=== PATIENT | female | born 1965 | race Hispanic/Latino ===

== ENCOUNTER 2018-02-18 17:13 | Emergency (ER) | payer OTHER ==
[2018-02-18 17:47] LABS: BASOPHILS % (AUTO) 0.4 % (0.0-5.0); EOSINOPHILS % (AUTO) 5.7 % (0.0-8.0); HEMATOCRIT 37.2 % (36-48); LYMPHOCYTES % (AUTO) 28.6 % (21.0-51.0); MEAN CORPUSCULAR HEMOGLOBIN 30.2 pg (27.0-33.0); MEAN CORPUSCULAR HGB CONC 33.8 g/dL (32.0-36.0); MEAN CORPUSCULAR VOLUME 89.4 fL (79-99); MONOCYTES % (AUTO) 8.3 % (3.0-13.0); PLATELET COUNT (AUTO) 139 K/uL (130-400); RED BLOOD CELL COUNT(AUTO) 4.16 MIL/uL (4.00-5.50); RED CELL DISTRIBUTION WIDTH 14.6 % (11.0-15.5); WHITE BLOOD COUNT (AUTO) 9.2 K/uL (4.8-10.8)
[2018-02-18 18:04] LABS: CREATININE 1.2 mg/dL (0.5-1.5); POTASSIUM 4.4 mmol/L (3.5-5.1)
[2018-02-18 18:08] LABS: ALBUMIN 3.3 g/dL (3.5-5.0); BILIRUBIN,TOTAL 0.3 mg/dL (0.2-1.0); TOTAL PROTEIN, SERUM 7.1 g/dL (6.0-8.3)
[2018-02-18 18:08] LABS: APPEARANCE,URINE CLOUDY (CLEAR); BILIRUBIN,URINE NEGATIVE (NEGATIVE); COLOR,URINE YELLOW (YELLOW); GLUCOSE, URINE (UA) 250 mg/dL (NEGATIVE); KETONES,URINE NEGATIVE (NEGATIVE); LEUKOCYTE ESTERASE ,URINE TRACE (NEGATIVE); NITRATE,URINE NEGATIVE (NEGATIVE); OCCULT BLOOD,URINE LARGE (NEGATIVE); PROTEIN,URINE 100 (NEGATIVE); UROBILINOGEN,URINE 0.2 mg/dL (0.2-1.0)
[2018-02-18 18:18] LABS: BACTERIA,URINE Moderate /HPF (None Seen); RBC,URINE 26-50 /HPF (0-1); SQUAMOUS EPITHELIAL CELL,UR Rare /HPF (0-2)
[2018-02-18] MEDS ORDERED: MAG HYDROX/AL HYDROX/SIMETH ES 30 ML SUSP UDCUP ONE (19:05)
[2018-02-18] MEDS ORDERED: LIDOCAINE HCL 2% VISCOUS 15 ML UDCUP ONE (19:05)
[2018-02-18] MEDS ORDERED: SODIUM CHLORIDE 0.9% 1000ML 1,000 ML IV ONE (19:06)
[2018-02-18] MEDS ORDERED: CEFTRIAXONE SODIUM 1 GM ONE (19:06)
[2018-02-18] MEDS ORDERED: ONDANSETRON HCL 4 MG/2 ML VIAL ONE (19:06)
[2018-02-18] MEDS ORDERED: INSULIN HUMULIN R 100 UNIT/ML 3ML ONE (19:07)
== END 2018-02-18 20:24 | disposition home or self-care (01) ==
LOC: EDH 17:13
DX: N39.0 Urinary tract infection, site not specified (principal); K29.70 Gastritis, unspecified, without bleeding; R53.1 Weakness; R31.9 Hematuria, unspecified; E11.9 Type 2 diabetes mellitus without complications; E78.5 Hyperlipidemia, unspecified; I10 Essential (primary) hypertension; I25.10 Atherosclerotic heart disease of native coronary artery without angina pectoris; Z88.6 Allergy status to analgesic agent; Z90.710 Acquired absence of both cervix and uterus; Z98.890 Other specified postprocedural states; Z79.899 Other long term (current) drug therapy
CPT/HCPCS: 36415; 80053; 81001; 82550; 83690; 84484; 85025; 93005 ×2; 96361; 96374; 96375; 99285; J0696; J1815; J2405; J7030

== ENCOUNTER 2018-03-03 09:44 | Observation (INO) | payer OTHER ==
[~2018-03-03] VITALS: Ht 157.5 cm; Wt 89.2 kg
[2018-03-03 10:35] LABS: BASOPHILS % (AUTO) 0.3 % (0.0-5.0); EOSINOPHILS % (AUTO) 2.5 % (0.0-8.0); HEMATOCRIT 36.8 % (36-48); LYMPHOCYTES % (AUTO) 23.1 % (21.0-51.0); MEAN CORPUSCULAR HEMOGLOBIN 29.8 pg (27.0-33.0); MEAN CORPUSCULAR HGB CONC 33.4 g/dL (32.0-36.0); MEAN CORPUSCULAR VOLUME 89.4 fL (79-99); MONOCYTES % (AUTO) 7.5 % (3.0-13.0); NEUTROPHILS % (AUTO) 66.6 % (40.0-77.0); PLATELET COUNT (AUTO) 174 K/uL (130-400); RED BLOOD CELL COUNT(AUTO) 4.12 MIL/uL (4.00-5.50); WHITE BLOOD COUNT (AUTO) 8.3 K/uL (4.8-10.8)
[2018-03-03 10:50] LABS: CREATININE 1.1 mg/dL (0.5-1.5)
[2018-03-03] MEDS ORDERED: KETOROLAC TROMETHAMINE 30MG/ML ONE (11:06)
[2018-03-03] MEDS ORDERED: INSULIN HUMULIN R 100 UNIT/ML 3ML ONE (11:09)
[2018-03-03] MEDS ORDERED: SODIUM CHLORIDE 0.9% 50 ML IV ONE (12:34)
[2018-03-03] MEDS ORDERED: CEFTRIAXONE SODIUM 1 GM ONE (12:34)
[2018-03-03] MEDS ORDERED: HYDROMORPHONE HCL 0.5 MG/0.5 ML ML ONE (13:56)
[2018-03-03] MEDS ORDERED: VANCOMYCIN 1GM+NS 250ML 250 ML IV ONE (14:19)
[2018-03-03 17:10] VITALS: BP 170/90
[2018-03-03] MEDS ORDERED: VANCOMYCIN PROTOCOL PER PHARMACY IV SCH (18:30)
[2018-03-03] MEDS ORDERED: COMPOUND IV REFRIGERATED 1 EACH IVSOLN MISC PRN (18:30)
[2018-03-03] MEDS ORDERED: ONDANSETRON HCL MDV 20ML 2 MG/ML VIAL IVP PRN (18:30)
[2018-03-03] MEDS ORDERED: VANCOMYCIN 1.5 GM in SODIUM CHLORIDE 0.9% 250 ML IV ONE (18:30)
[2018-03-03 20:15] VITALS: BP 152/86
[2018-03-03] MEDS: HYDROMORPHONE HCL 0.5 MG/0.5 ML ML IVP PRN (21:05)
[2018-03-04 00:15] VITALS: BP 152/78
[2018-03-04] MEDS ORDERED: SITA1TAB2 PO (00:46)
[2018-03-04] MEDS ORDERED: LATA2.5D2 OP (00:46)
[2018-03-04] MEDS ORDERED: CETI-101 PO (00:46)
[2018-03-04] MEDS ORDERED: TRAM50TA4 PO (00:46)
[2018-03-04] MEDS ORDERED: SERT100T12 PO (00:46)
[2018-03-04] MEDS ORDERED: GABA-318 PO (00:46)
[2018-03-04] MEDS ORDERED: ATOR40TA69 PO (00:46)
[2018-03-04] MEDS ORDERED: FAMO-136 PO (00:46)
[2018-03-04] MEDS ORDERED: INSU300I SQ ×2 (00:46)
[2018-03-04] MEDS ORDERED: FURO20TA4 PO (00:46)
[2018-03-04] MEDS ORDERED: FOLI1TAB15 PO (00:46)
[2018-03-04] MEDS ORDERED: TRAZ-185 PO (00:46)
[2018-03-04] MEDS ORDERED: CHOL400T4 PO (00:46)
[2018-03-04] MEDS ORDERED: SULF500T8 PO (00:46)
[2018-03-04] MEDS ORDERED: DULO30CA51 PO (00:46)
[2018-03-04] MEDS ORDERED: METO100T14 PO (00:46)
[2018-03-04] MEDS ORDERED: TYL3 PO (00:46)
[2018-03-04] MEDS ORDERED: FLUT30CR12 TP (00:49)
[2018-03-04] MEDS: HYDROMORPHONE HCL 0.5 MG/0.5 ML ML IVP PRN (01:13)
[2018-03-04 04:29] LABS: HEMATOCRIT 34.8 % (36-48); MEAN CORPUSCULAR HEMOGLOBIN 30.6 pg (27.0-33.0); MEAN CORPUSCULAR HGB CONC 34.2 g/dL (32.0-36.0); MEAN CORPUSCULAR VOLUME 89.3 fL (79-99); PLATELET COUNT (AUTO) 157 K/uL (130-400); RED BLOOD CELL COUNT(AUTO) 3.89 MIL/uL (4.00-5.50); RED CELL DISTRIBUTION WIDTH 13.9 % (11.0-15.5); WHITE BLOOD COUNT (AUTO) 6.9 K/uL (4.8-10.8)
[2018-03-04 04:46] LABS: ALBUMIN 2.7 g/dL (3.5-5.0); BILIRUBIN,TOTAL 0.2 mg/dL (0.2-1.0); CREATININE 0.9 mg/dL (0.5-1.5); POTASSIUM 4.1 mmol/L (3.5-5.1); TOTAL PROTEIN, SERUM 6.5 g/dL (6.0-8.3)
[2018-03-04] MEDS ORDERED: VANCOMYCIN 750MG + NS 250 ML IV SCH ×2 (06:00)
[2018-03-04 06:15] VITALS: BP 157/78
[2018-03-04 08:20] VITALS: BP 169/87
[2018-03-04 11:43] VITALS: BP 161/65
[2018-03-04] MEDS ORDERED: CEFTRIAXONE SODIUM 1 GM IVP SCH (12:00)
== END 2018-03-04 14:00 | disposition home or self-care (01) ==
LOC: EDH 09:44 → EDHIP 12:24 → 3DH 17:10
PROVIDERS: ADMIT Internal Medicine; ATTEND Internal Medicine
DX: L03.116 Cellulitis of left lower limb (principal); E11.621 Type 2 diabetes mellitus with foot ulcer; E11.51 Type 2 diabetes mellitus with diabetic peripheral angiopathy without gangrene; E78.5 Hyperlipidemia, unspecified; I10 Essential (primary) hypertension; L97.519 Non-pressure chronic ulcer of other part of right foot with unspecified severity; Z89.411 Acquired absence of right great toe; Z79.4 Long term (current) use of insulin
CPT/HCPCS: 36415 ×2; 73630; 80048; 80053; 82948 ×4; 85025; 85027; 93925; 96365; 96366; 96375; 96376; 99285; G0378 ×26; J0696; J1170 ×3; J1815; J1885; J3370 ×3; J7030 ×2

== ENCOUNTER 2018-04-13 06:50 | Day surgery (SDC) | payer OTHER ==
[2018-04-09 17:05] LABS: BASOPHILS % (AUTO) 0.3 % (0.0-5.0); HEMATOCRIT 35.7 % (36-48); LYMPHOCYTES % (AUTO) 13.1 % (21.0-51.0); MEAN CORPUSCULAR HGB CONC 34.3 g/dL (32.0-36.0); MEAN CORPUSCULAR VOLUME 90.2 fL (79-99); MONOCYTES % (AUTO) 6.9 % (3.0-13.0); NEUTROPHILS % (AUTO) 78.7 % (40.0-77.0); PLATELET COUNT (AUTO) 169 K/uL (130-400); RED BLOOD CELL COUNT(AUTO) 3.95 MIL/uL (4.00-5.50); RED CELL DISTRIBUTION WIDTH 13.9 % (11.0-15.5); WHITE BLOOD COUNT (AUTO) 8.4 K/uL (4.8-10.8)
[2018-04-09 17:06] VITALS: BP 170/79
[2018-04-09 17:17] LABS: INR 0.9 (0.85-1.15); PARTIAL THROMBOPLASTIN TIME 25.5 SEC (26.3-35.5); PROTHROMBIN TIME 9.5 SEC (9.6-11.6)
[2018-04-09 17:21] LABS: ALBUMIN 3.1 g/dL (3.5-5.0); BILIRUBIN,TOTAL 0.2 mg/dL (0.2-1.0); CREATININE 1.4 mg/dL (0.5-1.5); POTASSIUM 4.8 mmol/L (3.5-5.1)
[2018-04-13] VITALS (30 sets, daily range): BP systolic 103–139; BP diastolic 56–84
[~2018-04-13] VITALS: Ht 157.5 cm; Wt 91.4 kg
[~2018-04-13 06:50] MED LIST: ATOR40TA69 PO; CEFAZOLIN SODIUM 1 GM VIAL IVP ONE; CETI-101 PO; CHOL400T4 PO; DULO30CA51 PO; FAMO-136 PO; FLUT30CR12 TP; FOLI1TAB15 PO; FURO20TA4 PO; GABA-318 PO; INSU300I SQ; LATA2.5D2 OP; METO100T14 PO; SERT100T12 PO; SITA1TAB2 PO; SULF500T8 PO; TRAM50TA4 PO; TRAZ-144 PO; TYL3 PO; WATER FOR INJECTION,STERILE 20 ML VIAL IJ ONE
[2018-04-13] MEDS ORDERED: SODIUM CHLORIDE 0.9% 1000ML 1,000 ML IV ONE (07:06)
[2018-04-13] MEDS ORDERED: CEFAZOLIN SODIUM 1 GM VIAL ONE (07:06)
[2018-04-13] MEDS ORDERED: BUPIVACAINE/PF 0.25% 30ML VIAL IJ ONE (07:12)
[2018-04-13] MEDS ORDERED: LIDOCAINE HCL-MPF 1% 2ML VIAL ONE (07:13)
[2018-04-13] MEDS ORDERED: FENTANYL CITRATE PF 50 MCG/1 ML 2ML VIAL ONE (07:47)
[2018-04-13] MEDS ORDERED: MIDAZOLAM HCL 1 MG/ML 2ML VIAL ONE (07:47)
[2018-04-13] MEDS ORDERED: PROPOFOL 10 MG/ML 20ML VIAL IV ONE (07:49)
[2018-04-13] MEDS ORDERED: IOPAMIDOL 10 ML VIAL ONE (07:52)
[2018-04-13] MEDS ORDERED: DEXAMETHASONE SOD PHOSPHATE 10MG/ML 1ML VIAL ONE (08:19)
[2018-04-13] MEDS ORDERED: LIDOCAINE HCL 4% LTA SOL 4 ML VIAL ONE (08:19)
[2018-04-13] MEDS ORDERED: ONDANSETRON HCL 4 MG/2 ML VIAL ONE (08:19)
[2018-04-13] MEDS ORDERED: LIDOCAINE PF 2% 5ML ABBOJECT ONE (08:19)
[2018-04-13] MEDS ORDERED: GLYCOPYRROLATE 0.2 MG/ML 5 ML VIAL ONE (08:19)
[2018-04-13] MEDS ORDERED: LIDOCAINE HCL 2% JELLY 5 ML ONE (08:19)
[2018-04-13] MEDS ORDERED: LIDOCAINE HCL MPF 1% 5ML VIAL ONE (08:19)
[2018-04-13] MEDS ORDERED: NEOSTIGMINE 5MG/5ML SYR IV ONE (08:19)
[2018-04-13] MEDS ORDERED: ROCURONIUM BROMIDE 10MG/1ML 5ML VL ONE (08:19)
[2018-04-13] MEDS ORDERED: IPRATROPIUM/ALBUTEROL SULFATE 3 ML SOLUTION IH ONE (08:58)
[2018-04-13 10:53] LABS: ABG BASE EXCESS 0.1 mmol/L (-2.0-3.0); ABG HCO3 26.8 mmol/L (21.0-28.0); ABG OXYGEN SATURATION 92.6 % (95.0-99.0); ABG PCO2 51 mmHg (32-45)
== END 2018-04-13 12:50 | disposition home or self-care (01) ==
LOC: DAH 06:50
PROVIDERS: ATTEND Neuromusculoskeletal Medicine & OMM
DX: M47.816 Spondylosis without myelopathy or radiculopathy, lumbar region (principal); E11.9 Type 2 diabetes mellitus without complications; I10 Essential (primary) hypertension; M19.90 Unspecified osteoarthritis, unspecified site; Z86.73 Personal history of transient ischemic attack (TIA), and cerebral infarction without residual deficits; Z95.1 Presence of aortocoronary bypass graft; Z98.42 Cataract extraction status, left eye; Z98.41 Cataract extraction status, right eye; Z98.890 Other specified postprocedural states; Z79.899 Other long term (current) drug therapy; Z82.49 Family history of ischemic heart disease and other diseases of the circulatory system; Z83.3 Family history of diabetes mellitus; Z82.61 Family history of arthritis
CPT/HCPCS: 36415; 36600; 64493; 64494; 80053; 82803; 82948 ×2; 85025; 85610; 85730; 94640; A4218; J0690; J1030; J1100; J2001; J2250; J2405; J2704; J2710; J3010; J3490 ×4; J7030; Q9966; 77003

== ENCOUNTER 2018-07-08 06:56 | Day surgery (SDC) | payer OTHER, MEDICARE ==
[2018-07-06 14:47] VITALS: BP 134/60
[2018-07-06 15:05] LABS: APPEARANCE,URINE Clear (CLEAR); BILIRUBIN,URINE Negative (NEGATIVE); COLOR,URINE Yellow (YELLOW); GLUCOSE, URINE (UA) TRACE mg/dL (NEGATIVE); KETONES,URINE Negative (NEGATIVE); LEUKOCYTE ESTERASE ,URINE Moderate (NEGATIVE); NITRATE,URINE Negative (NEGATIVE); OCCULT BLOOD,URINE Moderate (NEGATIVE); PROTEIN,URINE POS 2+ (NEGATIVE); UROBILINOGEN,URINE 0.2 mg/dL (0.2-1.0)
[2018-07-06 15:06] LABS: BASOPHILS % (AUTO) 0.3 % (0.0-5.0); EOSINOPHILS % (AUTO) 3.6 % (0.0-8.0); HEMATOCRIT 35.2 % (36-48); LYMPHOCYTES % (AUTO) 29.4 % (21.0-51.0); MEAN CORPUSCULAR HEMOGLOBIN 31.3 pg (27.0-33.0); MEAN CORPUSCULAR HGB CONC 33.7 g/dL (32.0-36.0); MEAN CORPUSCULAR VOLUME 92.9 fL (79-99); MONOCYTES % (AUTO) 6.1 % (3.0-13.0); NEUTROPHILS % (AUTO) 60.6 % (40.0-77.0); PLATELET COUNT (AUTO) 189 K/uL (130-400); RED BLOOD CELL COUNT(AUTO) 3.79 MIL/uL (4.00-5.50); RED CELL DISTRIBUTION WIDTH 17.2 % (11.0-15.5); WHITE BLOOD COUNT (AUTO) 8.4 K/uL (4.8-10.8)
[2018-07-06 15:30] LABS: INR 0.9 (0.85-1.15); PARTIAL THROMBOPLASTIN TIME 26.8 SEC (26.3-35.5); PROTHROMBIN TIME 9.5 SEC (9.6-11.6)
[2018-07-06 15:31] LABS: CREATININE 1.7 mg/dL (0.5-1.5); POTASSIUM 5.3 mmol/L (3.5-5.1)
[2018-07-06 15:41] LABS: BACTERIA,URINE Few /HPF (None Seen); SQUAMOUS EPITHELIAL CELL,UR Few /HPF (0-2)
[2018-07-06 15:42] LABS: TRANSITIONAL EPI CELLS,URINE Few /HPF (None Seen)
[2018-07-08] VITALS (10 sets, daily range): BP systolic 114–137; BP diastolic 58–76
[~2018-07-08] VITALS: Ht 160 cm; Wt 91.2 kg
[~2018-07-08 06:56] MED LIST changes: +ACET1TAB25 PO; -ATOR40TA69 PO; +ATOR40TA71 PO; -CEFAZOLIN SODIUM 1 GM VIAL IVP ONE; -CETI-101 PO; -CHOL400T4 PO; -DULO30CA51 PO; +DULOXETINE; -FAMO-136 PO; -FLUT30CR12 TP; +ISOS30TA6 PO; -LATA2.5D2 OP; +LOSA25TA16 PO; +METH2.5T6 PO; +METO-391 PO; -METO100T14 PO; +MONT10TA24 PO; +NITR0.4T50 SL; +PANT40TA25 PO; -SERT100T12 PO; +SERT50TA12 PO; +SODIUM CHLORIDE 0.9% 1000ML 1,000 ML IV SCH; +SODIUM CHLORIDE 0.9% 500ML 500 ML IV SCH; -TRAM50TA4 PO; -TRAZ-144 PO; +TRAZ-185 PO; -TYL3 PO; -WATER FOR INJECTION,STERILE 20 ML VIAL IJ ONE
[2018-07-08] MEDS ORDERED: LIDOCAINE HCL-MPF 2% 5ML VIAL ONE (08:43)
[2018-07-08] MEDS ORDERED: IOHEXOL 350 MG/ML 100ML INFUS..BTL IV ONE (08:43)
[2018-07-08] MEDS ORDERED: IOHEXOL-350 50ML VIAL IV ONE (08:43)
[2018-07-08] MEDS ORDERED: MIDAZOLAM HCL 1 MG/ML 2ML VIAL ONE (09:32)
[2018-07-08] MEDS ORDERED: ISOS60TA4 PO (10:09)
[2018-07-08] MEDS ORDERED: GLUCAGON 1MG KIT 1 MG ML IM PRN (10:15)
[2018-07-08] MEDS ORDERED: DEXTROSE 50%-WATER 50 ML DISP.SYRIN IV PRN (10:15)
== END 2018-07-08 16:40 | disposition home or self-care (01) ==
LOC: DAH 06:56
PROVIDERS: ATTEND Internal Medicine Cardiovascular Disease
DX: I25.118 Atherosclerotic heart disease of native coronary artery with other forms of angina pectoris (principal); E78.5 Hyperlipidemia, unspecified; Z86.73 Personal history of transient ischemic attack (TIA), and cerebral infarction without residual deficits; E11.9 Type 2 diabetes mellitus without complications; Z88.6 Allergy status to analgesic agent; Z79.84 Long term (current) use of oral hypoglycemic drugs; Z79.899 Other long term (current) drug therapy; Z98.890 Other specified postprocedural states; Z83.3 Family history of diabetes mellitus; Z82.49 Family history of ischemic heart disease and other diseases of the circulatory system
CPT/HCPCS: 36415; 71045; 80048; 81001; 82948 ×2; 85025; 85610; 85730; 93005; 93458; 99156; 99157; A4606; C1760; C1894; J1644; J2250; J3490; J7030; Q9965; Q9967 ×2

== ENCOUNTER → 2018-07-22 | Outpatient (CLI) | payer OTHER, MEDICARE ==
[~2018-07-22] MED LIST changes: -ISOS30TA6 PO; +ISOS60TA4 PO; -SODIUM CHLORIDE 0.9% 1000ML 1,000 ML IV SCH; -SODIUM CHLORIDE 0.9% 500ML 500 ML IV SCH
== END | disposition home or self-care (01) ==
LOC: SHCH 08:27
PROVIDERS: ATTEND Internal Medicine Cardiovascular Disease
DX: I72.4 Aneurysm of artery of lower extremity (principal)
CPT/HCPCS: 76936

== ENCOUNTER 2019-09-28 21:48 | Emergency (ER) | payer MEDICARE ==
[~2019-09-28 21:48] MED LIST changes: -GABA-318 PO; +GABA600T10 PO; -LOSA25TA16 PO; +LOSA25TA41 PO
[2019-09-28] MEDS ORDERED: SODIUM CHLORIDE 0.9% 1000ML 1,000 ML IV ONE ×2 (22:31→23:40)
[2019-09-28 22:38] LABS: BASOPHILS % (AUTO) 0.2 % (0.0-5.0); EOSINOPHILS % (AUTO) 5.1 % (0.0-8.0); HEMATOCRIT 39.9 % (36-48); LYMPHOCYTES % (AUTO) 42.2 % (21.0-51.0); MEAN CORPUSCULAR HEMOGLOBIN 30.8 pg (27.0-33.0); MEAN CORPUSCULAR HGB CONC 32.8 g/dL (32.0-36.0); MEAN CORPUSCULAR VOLUME 93.9 fL (79-99); MONOCYTES % (AUTO) 7.8 % (3.0-13.0); NEUTROPHILS % (AUTO) 44.2 % (40.0-77.0); PLATELET COUNT (AUTO) 198 K/uL (130-400); RED BLOOD CELL COUNT(AUTO) 4.25 MIL/uL (4.00-5.50); WHITE BLOOD COUNT (AUTO) 6.5 K/uL (4.8-10.8)
[2019-09-28 22:39] LABS: APPEARANCE,URINE Cloudy (CLEAR); BILIRUBIN,URINE Negative (NEGATIVE); COLOR,URINE Yellow (YELLOW); GLUCOSE, URINE (UA) Negative (NEGATIVE); KETONES,URINE Negative (NEGATIVE); LEUKOCYTE ESTERASE ,URINE Trace (NEGATIVE); NITRATE,URINE Negative (NEGATIVE); OCCULT BLOOD,URINE Negative (NEGATIVE); PH,URINE 6.5 (5.0-8.0); PROTEIN,URINE 300 mg/dL (NEGATIVE); UROBILINOGEN,URINE 0.2 mg/dL (0.2-1.0)
[2019-09-28 22:58] LABS: BACTERIA,URINE Many /HPF (None Seen); RBC,URINE 0-1 /HPF (0-1); SQUAMOUS EPITHELIAL CELL,UR 0-2 /HPF (0-2)
[2019-09-28 23:00] LABS: CREATININE 1.7 mg/dL (0.5-1.5); POTASSIUM 4.2 mmol/L (3.5-5.1)
[2019-09-28 23:05] LABS: BILIRUBIN,TOTAL 0.3 mg/dL (0.2-1.0); TOTAL PROTEIN, SERUM 7.1 g/dL (6.0-8.3)
[2019-09-28] MEDS ORDERED: CEFTRIAXONE SODIUM 1 GM ONE (23:40)
== END 2019-09-29 00:56 | disposition home or self-care (01) ==
LOC: EDH 21:48
DX: N39.0 Urinary tract infection, site not specified (principal); E86.0 Dehydration; R53.1 Weakness; E11.9 Type 2 diabetes mellitus without complications; I25.10 Atherosclerotic heart disease of native coronary artery without angina pectoris; I10 Essential (primary) hypertension; E78.5 Hyperlipidemia, unspecified; Z88.6 Allergy status to analgesic agent
CPT/HCPCS: 36415; 80053; 81001; 82550; 84484; 85025; 87077; 87088; 87186; 93005; 96361; 96374; 99285; J0696; J7030 ×2

== ENCOUNTER → 2019-11-29 | Outpatient (CLI) | payer OTHER, MEDICARE ==
[~2019-11-29] MED LIST changes: -MONT10TA24 PO; +MONT10TA26 PO
== END | disposition home or self-care (01) ==
LOC: WHH 13:30
PROVIDERS: ATTEND Podiatrist
DX: E11.621 Type 2 diabetes mellitus with foot ulcer (principal); L97.511 Non-pressure chronic ulcer of other part of right foot limited to breakdown of skin; E11.51 Type 2 diabetes mellitus with diabetic peripheral angiopathy without gangrene; I10 Essential (primary) hypertension; I25.10 Atherosclerotic heart disease of native coronary artery without angina pectoris; E78.5 Hyperlipidemia, unspecified; Z89.411 Acquired absence of right great toe; Z88.6 Allergy status to analgesic agent
CPT/HCPCS: 93923

== ENCOUNTER → 2019-12-02 | Outpatient (CLI) | payer OTHER, MEDICARE | END | disposition home or self-care (01) | LOC: RAH 10:47 | PROVIDERS: ATTEND Podiatrist | DX: E11.621 Type 2 diabetes mellitus with foot ulcer (principal); M86.171 Other acute osteomyelitis, right ankle and foot; E11.51 Type 2 diabetes mellitus with diabetic peripheral angiopathy without gangrene; Z89.411 Acquired absence of right great toe | CPT/HCPCS: 93922 ==

== ENCOUNTER 2019-12-06 14:43 | Emergency (ER) | payer OTHER, MEDICARE ==
[2019-12-06 15:13] LABS: CREATININE 1.6 mg/dL (0.5-1.5); POTASSIUM 3.9 mmol/L (3.5-5.1)
[2019-12-06 15:15] LABS: BASOPHILS % (AUTO) 2.1 % (0.0-5.0); HEMATOCRIT 40.9 % (36-48); LYMPHOCYTES % (AUTO) 29.8 % (21.0-51.0); MEAN CORPUSCULAR HEMOGLOBIN 29.7 pg (27.0-33.0); MEAN CORPUSCULAR VOLUME 89.9 fL (79-99); MONOCYTES % (AUTO) 9.9 % (3.0-13.0); NEUTROPHILS % (AUTO) 45.2 % (40.0-77.0); NUCLEATED RED BLOOD CELLS 0.3 % (0.0-0.19); PLATELET COUNT (AUTO) 454 K/uL (130-400); RED BLOOD CELL COUNT(AUTO) 4.55 MIL/uL (4.00-5.50); RED CELL DISTRIBUTION WIDTH 16.4 % (11.0-15.5); WHITE BLOOD COUNT (AUTO) 10.2 K/uL (4.8-10.8)
[2019-12-06 15:18] LABS: ALBUMIN 2.8 g/dL (3.5-5.0); BILIRUBIN,TOTAL 0.3 mg/dL (0.2-1.0); TOTAL PROTEIN, SERUM 8.1 g/dL (6.0-8.3)
[2019-12-06 17:31] LABS: APPEARANCE,URINE Clear (CLEAR); BILIRUBIN,URINE Negative (NEGATIVE); COLOR,URINE Yellow (YELLOW); GLUCOSE, URINE (UA) 250 mg/dL (NEGATIVE); KETONES,URINE Negative (NEGATIVE); LEUKOCYTE ESTERASE ,URINE Negative (NEGATIVE); NITRATE,URINE Negative (NEGATIVE); OCCULT BLOOD,URINE Negative (NEGATIVE); PROTEIN,URINE >=1000 mg/dL (NEGATIVE)
[2019-12-06 17:38] LABS: AMPHET/METH SCREEN,URINE NEGATIVE (NEGATIVE); BARBITURATE SCREEN, URINE NEGATIVE (NEGATIVE); BENZODIAZEPINES SCREEN,URINE NEGATIVE (NEGATIVE); CANNABINOID SCREEN,URINE NEGATIVE (NEGATIVE); COCAINE SCREEN,URINE NEGATIVE (NEGATIVE); OPIATE SCREEN,URINE NEGATIVE (NEGATIVE); PHENCYCLIDINE SCREEN,URINE NEGATIVE (NEGATIVE)
[2019-12-06 18:04] LABS: BACTERIA,URINE Rare /HPF (None Seen); RBC,URINE None Seen /HPF (0-1); WBC,URINE None Seen /HPF (0-1)
[2019-12-06 18:05] LABS: SQUAMOUS EPITHELIAL CELL,UR 0-2 /HPF (0-2)
== END 2019-12-06 18:19 | disposition home or self-care (01) ==
LOC: EDH 14:43
DX: R41.82 Altered mental status, unspecified (principal); I25.10 Atherosclerotic heart disease of native coronary artery without angina pectoris; E11.9 Type 2 diabetes mellitus without complications; E78.5 Hyperlipidemia, unspecified; I10 Essential (primary) hypertension; Z88.5 Allergy status to narcotic agent
CPT/HCPCS: 36415; 70450; 80053; 80305; 81001; 82140; 82948; 84484; 85025; 93005

== ENCOUNTER → 2020-08-03 | Outpatient (CLI) | payer OTHER, MEDICARE ==
[~2020-08-03] MED LIST changes: -PANT40TA25 PO; +PANT40TA54 PO
--- NOTE | 2020-08-03 11:05 | NUR ---
MBSS COMPLETED. TRANSIENT PENETRATION WITH THIN, NO ASPIRATION AT THIS TIME. RECOMMEND REGULAR SOLIDS, THIN LIQUIDS, PILLS WHOLE WITH LIQUIDS TOLERATED. FINANCIAL SERVICES SPECIALIST REVIEWED RESULTS AND RECOMMENDATIONS WITH PATIENT. PATIENT WAS EDUCATED AND VOICED UNDERSTANDING OF RISK AND CONSEQUENCES OF ASPIRATION. ALL QUESTIONS ANSWERED AT THIS TIME. GI AND ENT CONSULT RECOMMENDED. Addendum: 08/03/[address] FRACISCO LEDESMA Amended: Links added.
== END | disposition home or self-care (01) ==
LOC: RAH 10:37
PROVIDERS: ATTEND Internal Medicine Gastroenterology
DX: R13.13 Dysphagia, pharyngeal phase (principal)
CPT/HCPCS: 74230; 92611

== ENCOUNTER → 2020-08-08 | Outpatient (CLI) | payer OTHER, MEDICARE | END | disposition home or self-care (01) | LOC: RAH 13:42 | PROVIDERS: ATTEND Family Medicine | DX: I25.10 Atherosclerotic heart disease of native coronary artery without angina pectoris (principal); R93.89 Abnormal findings on diagnostic imaging of other specified body structures | CPT/HCPCS: 71250 ==

== ENCOUNTER → 2021-04-04 | Outpatient (CLI) | payer OTHER, MEDICARE ==
[~2021-04-04] MED LIST changes: -ISOS60TA4 PO; +ISOS60TA77 PO; -MONT10TA26 PO; +MONT10TA32 PO; +SERT-439 PO; -SERT50TA12 PO
== END | disposition home or self-care (01) ==
LOC: SHCH 08:06
PROVIDERS: ATTEND Internal Medicine Cardiovascular Disease
DX: I11.0 Hypertensive heart disease with heart failure (principal); I50.9 Heart failure, unspecified; I34.0 Nonrheumatic mitral (valve) insufficiency; I25.10 Atherosclerotic heart disease of native coronary artery without angina pectoris; E66.9 Obesity, unspecified; E11.9 Type 2 diabetes mellitus without complications; R55 Syncope and collapse
CPT/HCPCS: 93306; 93356

== ENCOUNTER 2021-11-13 22:22 | Observation (INO) | payer OTHER, MEDICARE ==
[~2021-11-13] VITALS: Ht 157.5 cm; Wt 69.4 kg
[~2021-11-13 22:22] MED LIST changes: +MONT-39 PO; -MONT10TA32 PO
[2021-11-13 23:20] LABS: HEMATOCRIT 21.4 % (36-48); MEAN CORPUSCULAR HEMOGLOBIN 33.3 pg (27.0-33.0); MEAN CORPUSCULAR HGB CONC 33.6 g/dL (32.0-36.0); MEAN CORPUSCULAR VOLUME 99.1 fL (79-99); RED BLOOD CELL COUNT(AUTO) 2.16 MIL/uL (4.00-5.50); RED CELL DISTRIBUTION WIDTH 17.2 % (11.0-15.5); WHITE BLOOD COUNT (AUTO) 5.3 K/uL (4.8-10.8)
[2021-11-13 23:34] LABS: ALBUMIN 1.3 g/dL (3.5-5.0); BILIRUBIN,TOTAL 0.4 mg/dL (0.2-1.0); CREATININE 0.9 mg/dL (0.5-1.5); TOTAL PROTEIN, SERUM 4.5 g/dL (6.0-8.3)
[2021-11-13 23:43] LABS: POTASSIUM 2.8 mmol/L (3.5-5.1)
[2021-11-14] MEDS ORDERED: POTASSIUM BICARB/CIT AC 25 MEQ TABLET.EFF PO ONE
[2021-11-14] MEDS ORDERED: KCL 20 MEQ ERTAB PO PRN (00:30)
[2021-11-14] MEDS ORDERED: POTASSIUM CHLORIDE 20MEQ/100ML 100 ML IV PRN (00:30)
[2021-11-14] MEDS ORDERED: ACETAMINOPHEN 325 MG TAB PO PRN (00:30)
[2021-11-14] MEDS ORDERED: LIDOCAINE HCL-MPF 1% 2ML VIAL IV PRN (00:30)
[2021-11-14] MEDS ORDERED: POTASSIUM CHLORIDE 10% ELIXIR 20 MEQ/15 ML UDCUP PO PRN (00:30)
[2021-11-14 06:45] LABS: HEMOGLOBIN A1C 4.7 % (4.0-6.0)
[2021-11-14] MEDS: INSULIN HUMULIN R 100 UNIT/ML 3ML SQ SCH ×4 (07:30→20:20)
[2021-11-14 07:43] LABS: BASOPHILS % (AUTO) 0.2 % (0.0-5.0); EOSINOPHILS % (AUTO) 2.7 % (0.0-8.0); HEMATOCRIT 25.2 % (36-48); MEAN CORPUSCULAR HEMOGLOBIN 32.4 pg (27.0-33.0); MEAN CORPUSCULAR HGB CONC 31.3 g/dL (32.0-36.0); MEAN CORPUSCULAR VOLUME 103.3 fL (79-99); MONOCYTES % (AUTO) 4.7 % (3.0-13.0); NEUTROPHILS % (AUTO) 54.9 % (40.0-77.0); PLATELET COUNT (AUTO) 141 K/uL (130-400); RED BLOOD CELL COUNT(AUTO) 2.44 MIL/uL (4.00-5.50); RED CELL DISTRIBUTION WIDTH 17.1 % (11.0-15.5); WHITE BLOOD COUNT (AUTO) 5.6 K/uL (4.8-10.8)
[2021-11-14 08:03] LABS: MAGNESIUM 1.9 mg/dL (1.80-2.40); THYROID STIMULATING HORMONE 5.56 uIU/mL (0.36-3.74)
[2021-11-14 09:53] LABS: CREATININE 0.9 mg/dL (0.5-1.5)
[2021-11-14] MEDS: DONEPEZIL HCL 5 MG TAB PO SCH (09:54)
[2021-11-14] MEDS: LEVOTHYROXINE 50 MCG TABLET PO SCH (09:54)
[2021-11-14] MEDS: ATORVASTATIN 20 MG TABLET PO SCH (09:54)
[2021-11-14] MEDS: ISOSORBIDE MONO 30MG SR TAB PO SCH (09:54)
[2021-11-14] MEDS: METOPROLOL SUCCINATE 50 MG TAB.SR.24H PO SCH (09:54)
[2021-11-14] MEDS: PANTOPRAZOLE 40 MG/VIAL IVP SCH (09:54)
[2021-11-14] MEDS ORDERED: HEPARIN 25,000 UNITS/250ML D5W 250 ML IV SCH (16:00)
[2021-11-14] MEDS ORDERED: HEPARIN 5,000 UNIT VIAL SQ PRN (16:00)
[2021-11-14 16:09] LABS: BASOPHILS % (AUTO) 0.4 % (0.0-5.0); EOSINOPHILS % (AUTO) 1.8 % (0.0-8.0); HEMATOCRIT 21.7 % (36-48); LYMPHOCYTES % (AUTO) 40.9 % (21.0-51.0); MEAN CORPUSCULAR HEMOGLOBIN 33.2 pg (27.0-33.0); MEAN CORPUSCULAR HGB CONC 33.6 g/dL (32.0-36.0); MEAN CORPUSCULAR VOLUME 98.6 fL (79-99); MONOCYTES % (AUTO) 6.2 % (3.0-13.0); NEUTROPHILS % (AUTO) 50.2 % (40.0-77.0); PLATELET COUNT (AUTO) 143 K/uL (130-400); WHITE BLOOD COUNT (AUTO) 5.7 K/uL (4.8-10.8)
[2021-11-14 16:26] LABS: PROTHROMBIN TIME 10.9 SEC (9.6-11.6)
[2021-11-14 16:27] LABS: PARTIAL THROMBOPLASTIN TIME 23.7 SEC (26.3-35.5)
[2021-11-14 21:48] LABS: INR 1.08 (0.85-1.15); PROTHROMBIN TIME 11.7 SEC (9.6-11.6)
[2021-11-14 21:49] LABS: PARTIAL THROMBOPLASTIN TIME 88.3 SEC (26.3-35.5)
[2021-11-14 23:37] VITALS: BP 117/64
[2021-11-15] MEDS ORDERED: BUPR150T8 PO (01:27)
[2021-11-15] MEDS ORDERED: DONE5TAB33 PO (01:27)
[2021-11-15] MEDS ORDERED: ATOR10 PO (01:27)
[2021-11-15] MEDS ORDERED: CYAN500T53 SL (01:27)
[2021-11-15] MEDS ORDERED: ERGO500093 PO (01:27)
[2021-11-15] MEDS ORDERED: DOCU-116 PO (01:27)
[2021-11-15] MEDS ORDERED: LEVO100C4 PO (01:27)
[2021-11-15] MEDS ORDERED: ASCO500T10 PO (01:27)
[2021-11-15 05:16] VITALS: BP 140/74
[2021-11-15] MEDS: LEVOTHYROXINE 50 MCG TABLET PO SCH (05:38)
[2021-11-15] MEDS: INSULIN HUMULIN R 100 UNIT/ML 3ML SQ SCH ×4 (05:39→21:00)
[2021-11-15 06:00] LABS: RETICULOCYTE % (AUTO) 1.88 % (0.42-2.23)
[2021-11-15 06:11] LABS: BASOPHILS % (AUTO) 0.4 % (0.0-5.0); EOSINOPHILS % (AUTO) 2.4 % (0.0-8.0); HEMATOCRIT 23.4 % (36-48); LYMPHOCYTES % (AUTO) 38.7 % (21.0-51.0); MEAN CORPUSCULAR HEMOGLOBIN 32.4 pg (27.0-33.0); MEAN CORPUSCULAR HGB CONC 30.8 g/dL (32.0-36.0); MEAN CORPUSCULAR VOLUME 105.4 fL (79-99); MONOCYTES % (AUTO) 7.7 % (3.0-13.0); NEUTROPHILS % (AUTO) 50.2 % (40.0-77.0); PLATELET COUNT (AUTO) 134 K/uL (130-400); RED BLOOD CELL COUNT(AUTO) 2.22 MIL/uL (4.00-5.50); RED CELL DISTRIBUTION WIDTH 17.2 % (11.0-15.5); WHITE BLOOD COUNT (AUTO) 4.9 K/uL (4.8-10.8)
[2021-11-15 08:01] LABS: PROTHROMBIN TIME 11.9 SEC (9.6-11.6)
[2021-11-15 08:05] VITALS: BP 140/71
[2021-11-15 08:13] LABS: CREATININE 0.9 mg/dL (0.5-1.5); POTASSIUM 3.9 mmol/L (3.5-5.1)
[2021-11-15 08:20] LABS: PARTIAL THROMBOPLASTIN TIME > 139.0 SEC (26.3-35.5)
[2021-11-15 08:56] LABS: % IRON SATURATION 106.4 % (22-44)
[2021-11-15 10:35] VITALS: BP 134/76
[2021-11-15] MEDS: PANTOPRAZOLE 40 MG/VIAL IVP SCH (11:09)
[2021-11-15] MEDS: DONEPEZIL HCL 5 MG TAB PO SCH (11:09)
[2021-11-15] MEDS: ISOSORBIDE MONO 30MG SR TAB PO SCH (11:09)
[2021-11-15] MEDS: ATORVASTATIN 20 MG TABLET PO SCH (11:10)
[2021-11-15] MEDS: METOPROLOL SUCCINATE 50 MG TAB.SR.24H PO SCH (11:10)
[2021-11-15] MEDS ORDERED: METHOTREXATE SODIUM 2.5 MG TABLET PO SCH (13:30)
[2021-11-15] MEDS: BUPROPION HCL 150 MG TABLET.SA PO SCH (13:35)
[2021-11-15] MEDS: CYANOCOBALAMIN (VITAMIN B-12) 1,000 MCG TABLET PO SCH (16:19)
[2021-11-15 16:28] VITALS: BP 110/60
[2021-11-15 20:00] VITALS: BP 144/78
[2021-11-15] MEDS ORDERED: DONEPEZIL HCL 5 MG TAB PO SCH (21:00)
[2021-11-16] VITALS: BP 150/76
[2021-11-16 04:00] VITALS: BP 146/74
[2021-11-16] MEDS: APIXABAN 5 MG TABLET PO SCH ×2 (06:14→19:03)
[2021-11-16] MEDS: LEVOTHYROXINE 50 MCG TABLET PO SCH (06:14)
[2021-11-16] MEDS: INSULIN HUMULIN R 100 UNIT/ML 3ML SQ SCH ×4 (06:15→20:41)
[2021-11-16] MEDS ORDERED: LEVOTHYROXINE 100 MCG TABLET PO SCH (08:00)
[2021-11-16 08:22] VITALS: BP 141/75
[2021-11-16] MEDS ORDERED: HONEY 1 APPL/ML TUBE TP SCH (09:00)
[2021-11-16] MEDS: CYANOCOBALAMIN (VITAMIN B-12) 1,000 MCG TABLET PO SCH (10:25)
[2021-11-16] MEDS: ISOSORBIDE MONO 30MG SR TAB PO SCH (10:26)
[2021-11-16] MEDS: DONEPEZIL HCL 5 MG TAB PO SCH (10:26)
[2021-11-16] MEDS: METOPROLOL SUCCINATE 50 MG TAB.SR.24H PO SCH (10:26)
[2021-11-16] MEDS: ATORVASTATIN 20 MG TABLET PO SCH (10:26)
[2021-11-16] MEDS: PANTOPRAZOLE 40 MG/VIAL IVP SCH (10:27)
[2021-11-16] MEDS: BUPROPION HCL 150 MG TABLET.SA PO SCH (10:45)
[2021-11-16 12:08] VITALS: BP 146/75
[2021-11-16] MEDS: BALSAM PERU/CASTOR OIL 60 GM TUBE TP SCH ×2 (14:00→19:02)
[2021-11-16 16:28] VITALS: BP 123/64
[2021-11-16 19:51] VITALS: BP 131/75
[2021-11-17] MEDS ORDERED: FOLIC ACID 5 MG/ML VIAL IV SCH (09:00)
[2021-11-17] MEDS ORDERED: METHOTREXATE SODIUM 2.5 MG TABLET PO SCH (09:00)
== END 2021-11-16 23:15 ==
LOC: EDH 22:22 → EDHIP 11-14 00:23 → 3CH 11-14 22:45
PROVIDERS: ADMIT Internal Medicine; ATTEND Internal Medicine
DX: I82.403 Acute embolism and thrombosis of unspecified deep veins of lower extremity, bilateral (principal); E87.5 Hyperkalemia; I12.9 Hypertensive chronic kidney disease with stage 1 through stage 4 chronic kidney disease, or unspecified chronic kidney disease; N18.9 Chronic kidney disease, unspecified; E11.22 Type 2 diabetes mellitus with diabetic chronic kidney disease; E11.51 Type 2 diabetes mellitus with diabetic peripheral angiopathy without gangrene; L89.309 Pressure ulcer of unspecified buttock, unspecified stage; L89.152 Pressure ulcer of sacral region, stage 2; D53.9 Nutritional anemia, unspecified; Z20.822 Contact with and (suspected) exposure to COVID-19; L40.50 Arthropathic psoriasis, unspecified; E53.8 Deficiency of other specified B group vitamins; E03.9 Hypothyroidism, unspecified; E78.00 Pure hypercholesterolemia, unspecified; E87.6 Hypokalemia; F31.9 Bipolar disorder, unspecified; G93.89 Other specified disorders of brain; H54.62 Unqualified visual loss, left eye, normal vision right eye; I25.10 Atherosclerotic heart disease of native coronary artery without angina pectoris; M79.604 Pain in right leg; R62.7 Adult failure to thrive; Z79.899 Other long term (current) drug therapy; Z86.73 Personal history of transient ischemic attack (TIA), and cerebral infarction without residual deficits; Z98.84 Bariatric surgery status; Z79.01 Long term (current) use of anticoagulants
CPT/HCPCS: 36415 ×3; 36430; 70450; 71045; 80048 ×2; 80053; 82270; 82607; 82728; 82746; 82948 ×11; 83010; 83036; 83540; 83550; 83615; 83735; 84100; 84443; 84484; 85025 ×3; 85027; 85045; 85610 ×3; 85730 ×4; 86850; 86900; 86901; 86923; 87635; 93005; 93970; 96365; 96366; 96375; 96376 ×2; 97039 ×2; 97161; 97530; 99285; C9113 ×3; G0378 ×68; J1644 ×2; P9016

== ENCOUNTER 2021-12-05 02:13 | Inpatient (IN) | payer MEDICARE ==
[~2021-12-05 02:13] MED LIST changes: +ASCO500T10 PO; +ATOR10 PO; -ATOR40TA71 PO; +BUPR150T8 PO; +CYAN500T53 SL; +DOCU-116 PO; +DONE5TAB33 PO; -DULOXETINE; +ERGO500093 PO; -FURO20TA4 PO; +LEVO100C4 PO; -LOSA25TA41 PO; -SERT-439 PO; -SULF500T8 PO
[2021-12-05 03:31] LABS: HEMATOCRIT 21.6 % (36-48); LYMPHOCYTES % (AUTO) 66.4 % (21.0-51.0); MEAN CORPUSCULAR HEMOGLOBIN 32.7 pg (27.0-33.0); MEAN CORPUSCULAR HGB CONC 32.4 g/dL (32.0-36.0); MEAN CORPUSCULAR VOLUME 100.9 fL (79-99); MONOCYTES % (AUTO) 0.9 % (3.0-13.0); NEUTROPHILS % (AUTO) 24.3 % (40.0-77.0); PLATELET COUNT (AUTO) 47 K/uL (130-400); RED BLOOD CELL COUNT(AUTO) 2.14 MIL/uL (4.00-5.50); RED CELL DISTRIBUTION WIDTH 15.7 % (11.0-15.5); WHITE BLOOD COUNT (AUTO) 2.1 K/uL (4.8-10.8)
[2021-12-05 03:40] LABS: INR 1.01 (0.85-1.15)
[2021-12-05 04:02] LABS: CREATININE 0.9 mg/dL (0.5-1.5); POTASSIUM 3.6 mmol/L (3.5-5.1)
[2021-12-05 04:04] LABS: LYMPHOCYTES % (MANUAL) 44 % (22-44); MAN.DIFF COMMENT-IMPRESSION MANUAL DIFFERENTIAL; MONOCYTES % (MANUAL) 4 % (2-9); SEGMENTED NEUTROPHILS % 52 % (40-70)
[2021-12-05 04:07] LABS: ALBUMIN 1.1 g/dL (3.5-5.0); BILIRUBIN,TOTAL 0.6 mg/dL (0.2-1.0); TOTAL PROTEIN, SERUM 4.3 g/dL (6.0-8.3)
[2021-12-05] MEDS ORDERED: DEXTROSE 50%-WATER 50 ML DISP.SYRIN IV ONE ×2 (04:11→04:30)
[2021-12-05 05:00] LABS: APPEARANCE,URINE Turbid (CLEAR); BILIRUBIN,URINE Negative (NEGATIVE); COLOR,URINE Yellow (YELLOW); GLUCOSE, URINE (UA) Negative (NEGATIVE); KETONES,URINE 15 mg/dL (NEGATIVE); LEUKOCYTE ESTERASE ,URINE Large (NEGATIVE); NITRATE,URINE Negative (NEGATIVE); OCCULT BLOOD,URINE Trace (NEGATIVE); PROTEIN,URINE POS 2+ mg/dL (NEGATIVE)
[2021-12-05] MEDS ORDERED: ONDANSETRON 4MG INJ IV PRN (05:00)
[2021-12-05 05:04] LABS: HEMOGLOBIN A1C 4.5 % (4.0-6.0)
[2021-12-05] MEDS: 0.9%NACL 1000ML 1,000 ML IV SCH ×2 (05:12→15:00)
[2021-12-05 05:17] LABS: BACTERIA,URINE Many /HPF (None Seen); MUCUS,URINE Few LPF (None Seen); RBC,URINE 0-1 /HPF (0-1)
[2021-12-05] MEDS ORDERED: ACET-3194 PO (06:26)
[2021-12-05] MEDS ORDERED: GUAI100S13 PO (06:26)
[2021-12-05] MEDS ORDERED: DIPH1TAB PO (06:26)
[2021-12-05] MEDS ORDERED: IOHEXOL-350 75 ML VIAL IV ONE (07:23)
[2021-12-05 07:36] LABS: % IRON SATURATION 108.6 % (22-44)
[2021-12-05] MEDS ORDERED: PANTOPRAZOLE 40 MG/VIAL ONE ×2 (08:55→09:33)
[2021-12-05] MEDS ORDERED: CYANOCOBALAMIN (VITAMIN B-12) 100 MCG TABLET PO SCH (09:00)
[2021-12-05] MEDS: PANTOPRAZOLE 40MG INJ 80 MG in 0.9%NACL 100ML 100 ML IV SCH (09:31)
[2021-12-05] MEDS: CEFTRIAXONE 2GM VIAL IVP SCH (09:34)
[2021-12-05 16:59] LABS: HEMATOCRIT 25.3 % (36-48)
[2021-12-05] MEDS ORDERED: CYANOCOBALAMIN (VITAMIN B-12) 1,000 MCG TABLET PO SCH (17:30)
[2021-12-06] MEDS: 0.9%NACL 1000ML 1,000 ML IV SCH ×3 (00:06→20:32)
[2021-12-06] MEDS ORDERED: PANTOPRAZOLE 40 MG/VIAL ONE (04:01)
[2021-12-06] MEDS: PANTOPRAZOLE 40MG INJ 80 MG in 0.9%NACL 100ML 100 ML IV SCH ×2 (04:03→20:17)
[2021-12-06] MEDS: CEFTRIAXONE 2GM VIAL IVP SCH (08:04)
[2021-12-06 09:01] LABS: EOSINOPHILS % (AUTO) 4.8 % (0.0-8.0); LYMPHOCYTES % (AUTO) 87.9 % (21.0-51.0); MEAN CORPUSCULAR HEMOGLOBIN 32.9 pg (27.0-33.0); MEAN CORPUSCULAR HGB CONC 34.2 g/dL (32.0-36.0); MEAN CORPUSCULAR VOLUME 96.1 fL (79-99); MONOCYTES % (AUTO) 0.8 % (3.0-13.0); NEUTROPHILS % (AUTO) 4.9 % (40.0-77.0); PLATELET COUNT (AUTO) 34 K/uL (130-400); RED BLOOD CELL COUNT(AUTO) 2.07 MIL/uL (4.00-5.50); RED CELL DISTRIBUTION WIDTH 15.8 % (11.0-15.5); WHITE BLOOD COUNT (AUTO) 1.2 K/uL (4.8-10.8)
[2021-12-06 09:18] LABS: % IRON SATURATION 115.2 % (22-44)
[2021-12-06 09:28] LABS: HEMATOCRIT 19.9 % (36-48)
[2021-12-06 09:57] LABS: ALBUMIN 1.1 g/dL (3.5-5.0); BILIRUBIN,TOTAL 0.5 mg/dL (0.2-1.0); CREATININE 0.9 mg/dL (0.5-1.5); POTASSIUM 3.4 mmol/L (3.5-5.1); TOTAL PROTEIN, SERUM 4.3 g/dL (6.0-8.3)
[2021-12-06] MEDS ORDERED: MIDAZOLAM HCL 1 MG/ML 2ML VIAL ONE (14:40)
[2021-12-06] MEDS ORDERED: IOHEXOL-350 50ML VIAL IV ONE (14:40)
[2021-12-06] MEDS ORDERED: FENTANYL CITRATE PF 50 MCG/1 ML 2ML VIAL ONE (14:45)
[2021-12-06] MEDS ORDERED: LIDOCAINE HCL 400MG/20ML VIAL ONE (15:10)
[2021-12-06 23:10] VITALS: BP 159/83
[2021-12-07] MEDS: 0.9%NACL 1000ML 1,000 ML IV SCH (03:15)
[2021-12-07 04:00] VITALS: BP 134/63
[2021-12-07 04:55] LABS: BILIRUBIN,TOTAL 0.4 mg/dL (0.2-1.0); CREATININE 0.8 mg/dL (0.5-1.5); POTASSIUM 3.2 mmol/L (3.5-5.1); TOTAL PROTEIN, SERUM 4.2 g/dL (6.0-8.3)
[2021-12-07] MEDS ORDERED: DEXTROSE 50%-WATER 50 ML DISP.SYRIN IV ONE (05:47)
[2021-12-07 06:06] LABS: EOSINOPHILS % (AUTO) 3.8 % (0.0-8.0); LYMPHOCYTES % (AUTO) 87.7 % (21.0-51.0); MEAN CORPUSCULAR HEMOGLOBIN 33.3 pg (27.0-33.0); MEAN CORPUSCULAR HGB CONC 32.6 g/dL (32.0-36.0); MEAN CORPUSCULAR VOLUME 102.2 fL (79-99); MONOCYTES % (AUTO) 1.5 % (3.0-13.0); NEUTROPHILS % (AUTO) 6.2 % (40.0-77.0); PLATELET COUNT (AUTO) 21 K/uL (130-400); RED BLOOD CELL COUNT(AUTO) 1.86 MIL/uL (4.00-5.50); WHITE BLOOD COUNT (AUTO) 1.3 K/uL (4.8-10.8)
[2021-12-07] MEDS ORDERED: COMPOUND IV MISC 1 EACH IVSOLN MISC PRN (07:00)
[2021-12-07] MEDS: DEXTROSE 50%-WATER 50 ML DISP.SYRIN IV SCH (07:16)
[2021-12-07] MEDS: PANTOPRAZOLE 40MG INJ 80 MG in 0.9%NACL 100ML 100 ML IV SCH ×2 (07:21→18:11)
[2021-12-07 08:00] VITALS: BP 139/84
[2021-12-07] MEDS ORDERED: EPOETIN ALFA-EPBX (NON-ESRD) 10,000 UNIT/ML VIAL SQ SCH (09:00)
[2021-12-07] MEDS: CEFTRIAXONE 2GM VIAL IVP SCH (10:07)
[2021-12-07] MEDS: KCL 20 MEQ ERTAB PO SCH (10:07)
[2021-12-07] MEDS: DEXTROSE 5 % AND 0.9 % NACL 1,000 ML IV SCH (10:07)
[2021-12-07] MEDS: IRON SUCROSE COMPLEX 100 MG in 0.9%NACL 50ML 50 ML IV SCH (10:08)
[2021-12-07 10:17] LABS: EOSINOPHILS % (MANUAL) 3 % (1-6); LYMPHOCYTES % (MANUAL) 80 % (22-44); MAN.DIFF COMMENT-IMPRESSION MANUAL DIFFERENTIAL; MONOCYTES % (MANUAL) 9 % (2-9); REACTIVE LYMPHOCYTES 1 % (0-0); SEGMENTED NEUTROPHILS % 7 % (40-70)
[2021-12-07 11:36] LABS: MEAN CORPUSCULAR HEMOGLOBIN 31.9 pg (27.0-33.0); MEAN CORPUSCULAR VOLUME 96.7 fL (79-99); PLATELET COUNT (AUTO) 52 K/uL (130-400); RED BLOOD CELL COUNT(AUTO) 2.13 MIL/uL (4.00-5.50); RED CELL DISTRIBUTION WIDTH 15.9 % (11.0-15.5); WHITE BLOOD COUNT (AUTO) 1.3 K/uL (4.8-10.8)
[2021-12-07] MEDS: HONEY 1 APPL/ML TUBE TP SCH (11:57)
[2021-12-07 12:00] VITALS: BP 149/76
[2021-12-07 12:09] LABS: HEMATOCRIT 20.6 % (36-48)
[2021-12-07 12:19] LABS: EOSINOPHILS % (MANUAL) 6 % (1-6); LYMPHOCYTES % (MANUAL) 86 % (22-44); MONOCYTES % (MANUAL) 1 % (2-9); SEGMENTED NEUTROPHILS % 7 % (40-70)
[2021-12-07 12:20] LABS: MAN.DIFF COMMENT-IMPRESSION MANUAL DIFFERENTIAL; PLATELET MORPHOLOGY COMMENT DECREASED
[2021-12-07] MEDS ORDERED: HEPARIN 10,000 UNIT/10ML (1,000 UNIT/ML) VIAL ONE (12:57)
[2021-12-07] MEDS ORDERED: FENTANYL CITRATE PF 50 MCG/1 ML 2ML VIAL ONE (12:58)
[2021-12-07] MEDS ORDERED: LIDOCAINE HCL 1% MDV 50ML VIAL ONE (12:58)
[2021-12-07] MEDS ORDERED: IOHEXOL-350 50ML VIAL IV ONE (12:58)
[2021-12-07] MEDS ORDERED: MIDAZOLAM HCL 1 MG/ML 2ML VIAL ONE (12:58)
[2021-12-07 16:00] VITALS: BP 144/72
[2021-12-07] MEDS: BALSAM PERU/CASTOR OIL 60 GM TUBE TP SCH (19:40)
[2021-12-07 20:16] LABS: MEAN CORPUSCULAR HEMOGLOBIN 32.2 pg (27.0-33.0); MEAN CORPUSCULAR HGB CONC 33.5 g/dL (32.0-36.0); MEAN CORPUSCULAR VOLUME 96.3 fL (79-99); PLATELET COUNT (AUTO) 41 K/uL (130-400); RED CELL DISTRIBUTION WIDTH 15.3 % (11.0-15.5); WHITE BLOOD COUNT (AUTO) 1.2 K/uL (4.8-10.8)
[2021-12-07 21:17] LABS: BAND NEUTROPHILS % (MANUAL) 1 % (0-2); EOSINOPHILS % (MANUAL) 4 % (1-6); LYMPHOCYTES % (MANUAL) 60 % (22-44); MAN.DIFF COMMENT-IMPRESSION MANUAL DIFFERENTIAL; MONOCYTES % (MANUAL) 2 % (2-9); REACTIVE LYMPHOCYTES 3 % (0-0); SEGMENTED NEUTROPHILS % 30 % (40-70)
[2021-12-08 04:02] LABS: EOSINOPHILS % (AUTO) 6.9 % (0.0-8.0); HEMATOCRIT 24.9 % (36-48); LYMPHOCYTES % (AUTO) 86.3 % (21.0-51.0); MEAN CORPUSCULAR HEMOGLOBIN 32.7 pg (27.0-33.0); MEAN CORPUSCULAR HGB CONC 34.1 g/dL (32.0-36.0); MEAN CORPUSCULAR VOLUME 95.8 fL (79-99); MONOCYTES % (AUTO) 2.3 % (3.0-13.0); NEUTROPHILS % (AUTO) 4.5 % (40.0-77.0); PLATELET COUNT (AUTO) 36 K/uL (130-400); RED CELL DISTRIBUTION WIDTH 15.6 % (11.0-15.5); WHITE BLOOD COUNT (AUTO) 1.3 K/uL (4.8-10.8)
[2021-12-08 04:13] LABS: ALBUMIN 1.1 g/dL (3.5-5.0); BILIRUBIN,TOTAL 0.6 mg/dL (0.2-1.0); CREATININE 0.8 mg/dL (0.5-1.5); TOTAL PROTEIN, SERUM 4.3 g/dL (6.0-8.3)
[2021-12-08 04:19] LABS: POTASSIUM 2.8 mmol/L (3.5-5.1)
[2021-12-08] MEDS: DEXTROSE 5 % AND 0.9 % NACL 1,000 ML IV SCH (04:31)
[2021-12-08] MEDS: DEXTROSE 50%-WATER 50 ML DISP.SYRIN IV SCH (06:35)
[2021-12-08 08:00] VITALS: BP 166/90
[2021-12-08] MEDS ORDERED: POTASSIUM CHLORIDE 10% ELIXIR 20 MEQ/15 ML UDCUP PO ONE (08:00)
[2021-12-08] MEDS ORDERED: LIDOCAINE HCL-MPF 1% 2ML VIAL IV ONE (08:00)
[2021-12-08] MEDS: POTASSIUM CHLORIDE 10% ELIXIR 20 MEQ/15 ML UDCUP PO SCH ×2 (08:33→10:41)
[2021-12-08] MEDS: CEFTRIAXONE 2GM VIAL IVP SCH (08:35)
[2021-12-08] MEDS: POTASSIUM CHLORIDE 20 MEQ/100 ML BAG IV SCH (08:35)
[2021-12-08] MEDS: CYANOCOBALAMIN (VITAMIN B-12) 1000 MCG/ML 1ML VIAL IM SCH (08:36)
[2021-12-08] MEDS: BALSAM PERU/CASTOR OIL 60 GM TUBE TP SCH ×2 (09:26→20:35)
[2021-12-08] MEDS: HONEY 1 APPL/ML TUBE TP SCH (09:27)
[2021-12-08] MEDS: IRON SUCROSE COMPLEX 100 MG in 0.9%NACL 50ML 50 ML IV SCH (10:42)
[2021-12-08 12:00] VITALS: BP 173/88
[2021-12-08] MEDS ORDERED: PANTOPRAZOLE 40 MG/VIAL IVP SCH (13:00)
[2021-12-08 13:30] LABS: CREATININE 0.8 mg/dL (0.5-1.5); POTASSIUM 3.5 mmol/L (3.5-5.1)
[2021-12-08 16:00] VITALS: BP 160/86
[2021-12-08] MEDS: KCL 20 MEQ ERTAB PO SCH (16:39)
[2021-12-08] MEDS ORDERED: GABA600T PO (18:15)
[2021-12-08] MEDS ORDERED: DIPH1TAB PO (18:33)
[2021-12-08 19:53] VITALS: BP 111/92
[2021-12-08] MEDS: PANTOPRAZOLE 40 MG/VIAL IVP SCH (20:34)
[2021-12-08 23:45] VITALS: BP 151/75
[2021-12-09 03:55] VITALS: BP 145/88
[2021-12-09] MEDS ORDERED: ACETAMINOPHEN 325 MG TAB ONE ×2 (05:36→21:28)
[2021-12-09] MEDS ORDERED: ACETAMINOPHEN 325 MG TAB PO ONE ×2 (06:00→22:00)
[2021-12-09 06:28] LABS: CREATININE 0.8 mg/dL (0.5-1.5); POTASSIUM 3.1 mmol/L (3.5-5.1)
[2021-12-09 06:30] LABS: EOSINOPHILS % (AUTO) 8.9 % (0.0-8.0); HEMATOCRIT 31.5 % (36-48); LYMPHOCYTES % (AUTO) 85.3 % (21.0-51.0); MEAN CORPUSCULAR VOLUME 96.9 fL (79-99); MONOCYTES % (AUTO) 2.6 % (3.0-13.0); NEUTROPHILS % (AUTO) 3.2 % (40.0-77.0); PLATELET COUNT (AUTO) 22 K/uL (130-400); RED BLOOD CELL COUNT(AUTO) 3.25 MIL/uL (4.00-5.50); RED CELL DISTRIBUTION WIDTH 15.7 % (11.0-15.5); WHITE BLOOD COUNT (AUTO) 1.9 K/uL (4.8-10.8)
[2021-12-09 07:00] VITALS: BP 155/55
[2021-12-09] MEDS: DEXTROSE 50%-WATER 50 ML DISP.SYRIN IV SCH (07:00)
[2021-12-09] MEDS ORDERED: DOCUSATE SODIUM 100 MG CAP PO PRN (08:30)
[2021-12-09] MEDS ORDERED: DEXTROSE 5%-WATER 500 ML IV ONE (08:30)
[2021-12-09] MEDS: PANTOPRAZOLE 40 MG/VIAL IVP SCH ×2 (09:00→20:40)
[2021-12-09] MEDS: CEFTRIAXONE 2GM VIAL IVP SCH (09:05)
[2021-12-09] MEDS: KCL 20 MEQ ERTAB PO SCH (09:05)
[2021-12-09] MEDS: ASCORBIC ACID 500 MG TAB PO SCH (09:06)
[2021-12-09] MEDS: MONTELUKAST SODIUM 10 MG TAB PO SCH (09:06)
[2021-12-09] MEDS: DONEPEZIL HCL 5 MG TAB PO SCH (09:06)
[2021-12-09] MEDS: GABAPENTIN 300 MG CAPSULE PO SCH ×2 (09:06→20:39)
[2021-12-09] MEDS: ISOSORBIDE MONO 60MG SR TAB PO SCH (09:06)
[2021-12-09] MEDS: BUPROPION HCL 150 MG TABLET.SA PO SCH (09:06)
[2021-12-09] MEDS: PANTOPRAZOLE 40 MG TAB DR PO SCH (09:06)
[2021-12-09] MEDS: CYANOCOBALAMIN (VITAMIN B-12) 1000 MCG/ML 1ML VIAL IM SCH (09:07)
[2021-12-09] MEDS: POTASSIUM CHLORIDE 20 MEQ/100 ML BAG IV SCH (09:08)
[2021-12-09] MEDS: IRON SUCROSE COMPLEX 100 MG in 0.9%NACL 50ML 50 ML IV SCH (09:09)
[2021-12-09] MEDS: BALSAM PERU/CASTOR OIL 60 GM TUBE TP SCH ×2 (09:09→21:41)
[2021-12-09] MEDS: HONEY 1 APPL/ML TUBE TP SCH (09:09)
[2021-12-09 11:42] VITALS: BP 153/81
[2021-12-09 13:26] LABS: CREATININE 0.7 mg/dL (0.5-1.5); POTASSIUM 3.7 mmol/L (3.5-5.1); THYROID STIMULATING HORMONE 4.2 uIU/mL (0.36-3.74)
[2021-12-09 16:00] VITALS: BP 149/79
[2021-12-09 19:35] VITALS: BP 148/84
[2021-12-09] MEDS: TRAZODONE HCL 50 MG TAB PO SCH (20:39)
[2021-12-09] MEDS: ATORVASTATIN 20 MG TABLET PO SCH (20:39)
[2021-12-09 23:41] VITALS: BP 111/53
[2021-12-10 03:23] VITALS: BP 122/54
[2021-12-10] MEDS: DEXTROSE 50%-WATER 50 ML DISP.SYRIN IV SCH (05:07)
[2021-12-10 06:57] LABS: HEMATOCRIT 25.3 % (36-48); MEAN CORPUSCULAR HEMOGLOBIN 32.9 pg (27.0-33.0); MEAN CORPUSCULAR HGB CONC 32.8 g/dL (32.0-36.0); MEAN CORPUSCULAR VOLUME 100.4 fL (79-99); PLATELET COUNT (AUTO) 13 K/uL (130-400); RED BLOOD CELL COUNT(AUTO) 2.52 MIL/uL (4.00-5.50); RED CELL DISTRIBUTION WIDTH 15.6 % (11.0-15.5); WHITE BLOOD COUNT (AUTO) 1.5 K/uL (4.8-10.8)
[2021-12-10 07:17] LABS: CREATININE 0.8 mg/dL (0.5-1.5)
[2021-12-10 07:19] LABS: POTASSIUM 2.8 mmol/L (3.5-5.1)
[2021-12-10] MEDS: POTASSIUM CHLORIDE 10% ELIXIR 20 MEQ/15 ML UDCUP PO SCH (07:44)
[2021-12-10] MEDS: POTASSIUM CHLORIDE 20 MEQ/100 ML BAG IV SCH (07:44)
[2021-12-10] MEDS: IRON SUCROSE COMPLEX 100 MG in 0.9%NACL 50ML 50 ML IV SCH (07:45)
[2021-12-10] MEDS: LEVOTHYROXINE 100 MCG TABLET PO SCH (07:45)
[2021-12-10] MEDS: CEFTRIAXONE 2GM VIAL IVP SCH (07:45)
[2021-12-10] MEDS: PANTOPRAZOLE 40 MG TAB DR PO SCH (07:46)
[2021-12-10] MEDS: PANTOPRAZOLE 40 MG/VIAL IVP SCH ×2 (07:46→20:20)
[2021-12-10] MEDS: BUPROPION HCL 150 MG TABLET.SA PO SCH (07:46)
[2021-12-10] MEDS: KCL 20 MEQ ERTAB PO SCH (07:47)
[2021-12-10] MEDS: GABAPENTIN 300 MG CAPSULE PO SCH ×2 (07:47→20:20)
[2021-12-10] MEDS: DONEPEZIL HCL 5 MG TAB PO SCH (07:48)
[2021-12-10] MEDS: ASCORBIC ACID 500 MG TAB PO SCH (07:48)
[2021-12-10] MEDS: MONTELUKAST SODIUM 10 MG TAB PO SCH (07:48)
[2021-12-10] MEDS: ISOSORBIDE MONO 60MG SR TAB PO SCH (07:49)
[2021-12-10] MEDS: BALSAM PERU/CASTOR OIL 60 GM TUBE TP SCH ×2 (07:49→20:21)
[2021-12-10] MEDS: HONEY 1 APPL/ML TUBE TP SCH (07:49)
[2021-12-10 08:14] LABS: EOSINOPHILS % (MANUAL) 6 % (1-6); LYMPHOCYTES % (MANUAL) 85 % (22-44); MAN.DIFF COMMENT-IMPRESSION MANUAL DIFFERENTIAL; SEGMENTED NEUTROPHILS % 9 % (40-70)
[2021-12-10 08:15] LABS: PLATELET MORPHOLOGY COMMENT MARKED DECREASE
[2021-12-10 08:43] VITALS: BP 140/99
[2021-12-10] MEDS: CYANOCOBALAMIN (VITAMIN B-12) 1000 MCG/ML 1ML VIAL IM SCH (08:58)
[2021-12-10 12:42] VITALS: BP 163/64
[2021-12-10] MEDS: ACETAMINOPHEN 325 MG TAB PO PRN (15:12)
[2021-12-10 16:41] VITALS: BP 143/86
[2021-12-10 20:00] VITALS: BP 130/62
[2021-12-10] MEDS: TRAZODONE HCL 50 MG TAB PO SCH ×2 (20:20→21:00)
[2021-12-10] MEDS: ATORVASTATIN 20 MG TABLET PO SCH (20:20)
[2021-12-11] VITALS (10 sets, daily range): BP systolic 109–144; BP diastolic 48–87
[2021-12-11] MEDS: ACETAMINOPHEN 325 MG TAB PO PRN (02:37)
[2021-12-11 05:04] LABS: HEMATOCRIT 23.7 % (36-48); MEAN CORPUSCULAR HEMOGLOBIN 32.4 pg (27.0-33.0); MEAN CORPUSCULAR HGB CONC 32.9 g/dL (32.0-36.0); MEAN CORPUSCULAR VOLUME 98.3 fL (79-99); RED BLOOD CELL COUNT(AUTO) 2.41 MIL/uL (4.00-5.50); RED CELL DISTRIBUTION WIDTH 15.9 % (11.0-15.5); WHITE BLOOD COUNT (AUTO) 1.7 K/uL (4.8-10.8)
[2021-12-11 05:05] LABS: CREATININE 0.9 mg/dL (0.5-1.5)
[2021-12-11 05:08] LABS: % IRON SATURATION 156.4 % (22-44)
[2021-12-11 05:20] LABS: POTASSIUM 2.9 mmol/L (3.5-5.1)
[2021-12-11] MEDS: DEXTROSE 50%-WATER 50 ML DISP.SYRIN IV SCH (07:00)
[2021-12-11] MEDS: PANTOPRAZOLE 40 MG TAB DR PO SCH (07:07)
[2021-12-11] MEDS: POTASSIUM CHLORIDE 10% ELIXIR 20 MEQ/15 ML UDCUP PO SCH (08:18)
[2021-12-11] MEDS: CEFTRIAXONE 2GM VIAL IVP SCH (08:18)
[2021-12-11] MEDS: PANTOPRAZOLE 40 MG/VIAL IVP SCH ×2 (08:18→21:24)
[2021-12-11] MEDS: DONEPEZIL HCL 5 MG TAB PO SCH (08:19)
[2021-12-11] MEDS: LEVOTHYROXINE 100 MCG TABLET PO SCH (08:19)
[2021-12-11] MEDS: MONTELUKAST SODIUM 10 MG TAB PO SCH (08:19)
[2021-12-11] MEDS: KCL 20 MEQ ERTAB PO SCH (08:19)
[2021-12-11] MEDS: GABAPENTIN 300 MG CAPSULE PO SCH ×2 (08:19→21:24)
[2021-12-11] MEDS: BUPROPION HCL 150 MG TABLET.SA PO SCH (08:19)
[2021-12-11] MEDS: ASCORBIC ACID 500 MG TAB PO SCH (08:19)
[2021-12-11] MEDS: POTASSIUM CHLORIDE 20 MEQ/100 ML BAG IV SCH (08:20)
[2021-12-11] MEDS: IRON SUCROSE COMPLEX 100 MG in 0.9%NACL 50ML 50 ML IV SCH (08:20)
[2021-12-11] MEDS: ISOSORBIDE MONO 60MG SR TAB PO SCH (08:20)
[2021-12-11] MEDS: BALSAM PERU/CASTOR OIL 60 GM TUBE TP SCH ×2 (08:21→21:24)
[2021-12-11] MEDS: HONEY 1 APPL/ML TUBE TP SCH (08:21)
[2021-12-11] MEDS: CYANOCOBALAMIN (VITAMIN B-12) 1000 MCG/ML 1ML VIAL IM SCH (08:54)
[2021-12-11] MEDS ORDERED: FONDAPARINUX SODIUM 2.5 MG/0.5 ML SQ SCH (09:00)
[2021-12-11] MEDS ORDERED: DEXAMETHASONE SOD PHOSPHATE 4 MG/ML 1ML VIAL IV ONE (09:00)
[2021-12-11] MEDS ORDERED: MAGNESIUM 2GM PREMIX 50ML 50 ML IV PRN (12:00)
[2021-12-11] MEDS ORDERED: POTASSIUM CHLORIDE 20MEQ/100ML 100 ML IV PRN (12:00)
[2021-12-11] MEDS ORDERED: KCL 20 MEQ ERTAB PO PRN (12:00)
[2021-12-11] MEDS ORDERED: POTASSIUM CHLORIDE 10% ELIXIR 20 MEQ/15 ML UDCUP PO PRN (12:00)
[2021-12-11 13:30] LABS: MAGNESIUM 1.4 mg/dL (1.80-2.40); POTASSIUM 4.6 mmol/L (3.5-5.1)
[2021-12-11] MEDS ORDERED: EPOETIN ALFA-EPBX (NON-ESRD) 10,000 UNIT/ML VIAL SQ SCH (19:00)
[2021-12-11 19:59] LABS: HEMATOCRIT 24.7 % (36-48); LYMPHOCYTES % (AUTO) 89.7 % (21.0-51.0); MEAN CORPUSCULAR HEMOGLOBIN 31.9 pg (27.0-33.0); MEAN CORPUSCULAR HGB CONC 32.8 g/dL (32.0-36.0); MEAN CORPUSCULAR VOLUME 97.2 fL (79-99); MONOCYTES % (AUTO) 7.1 % (3.0-13.0); NEUTROPHILS % (AUTO) 2.4 % (40.0-77.0); NUCLEATED RED BLOOD CELLS 1.6 % (0.0-0.19); PLATELET COUNT (AUTO) 76 K/uL (130-400); RED BLOOD CELL COUNT(AUTO) 2.54 MIL/uL (4.00-5.50); RED CELL DISTRIBUTION WIDTH 15.8 % (11.0-15.5); WHITE BLOOD COUNT (AUTO) 1.3 K/uL (4.8-10.8)
[2021-12-11 20:10] LABS: POTASSIUM 4.7 mmol/L (3.5-5.1)
[2021-12-11] MEDS: TRAZODONE HCL 50 MG TAB PO SCH (21:00)
[2021-12-11] MEDS: ATORVASTATIN 20 MG TABLET PO SCH (21:24)
[2021-12-12] VITALS: BP 132/72
[2021-12-12 04:00] VITALS: BP 138/67
[2021-12-12 05:11] LABS: EOSINOPHILS % (AUTO) 1.1 % (0.0-8.0); HEMATOCRIT 22.2 % (36-48); LYMPHOCYTES % (AUTO) 90.9 % (21.0-51.0); MEAN CORPUSCULAR HEMOGLOBIN 32.9 pg (27.0-33.0); MEAN CORPUSCULAR HGB CONC 33.3 g/dL (32.0-36.0); MEAN CORPUSCULAR VOLUME 98.7 fL (79-99); MONOCYTES % (AUTO) 6.5 % (3.0-13.0); NEUTROPHILS % (AUTO) 1.5 % (40.0-77.0); NUCLEATED RED BLOOD CELLS 0.7 % (0.0-0.19); PLATELET COUNT (AUTO) 71 K/uL (130-400); RED BLOOD CELL COUNT(AUTO) 2.25 MIL/uL (4.00-5.50); RED CELL DISTRIBUTION WIDTH 15.8 % (11.0-15.5); WHITE BLOOD COUNT (AUTO) 2.8 K/uL (4.8-10.8)
[2021-12-12 05:28] LABS: CREATININE 0.9 mg/dL (0.5-1.5); POTASSIUM 4.1 mmol/L (3.5-5.1)
[2021-12-12 05:37] LABS: ALBUMIN 1.2 g/dL (3.5-5.0); BILIRUBIN,TOTAL 0.1 mg/dL (0.2-1.0); MAGNESIUM 1.8 mg/dL (1.80-2.40); TOTAL PROTEIN, SERUM 3.9 g/dL (6.0-8.3)
[2021-12-12 05:38] LABS: EOSINOPHILS % (MANUAL) 1 % (1-6); LYMPHOCYTES % (MANUAL) 98 % (22-44); MAN.DIFF COMMENT-IMPRESSION MANUAL DIFFERENTIAL; MONOCYTES % (MANUAL) 1 % (2-9)
[2021-12-12 05:40] LABS: PLATELET MORPHOLOGY COMMENT DECREASED
[2021-12-12] MEDS: DEXTROSE 50%-WATER 50 ML DISP.SYRIN IV SCH (07:00)
[2021-12-12] MEDS: POTASSIUM CHLORIDE 20 MEQ/100 ML BAG IV SCH (08:00)
[2021-12-12] MEDS: POTASSIUM CHLORIDE 10% ELIXIR 20 MEQ/15 ML UDCUP PO SCH (08:00)
[2021-12-12] MEDS: KCL 20 MEQ ERTAB PO SCH (08:30)
[2021-12-12] MEDS: DONEPEZIL HCL 5 MG TAB PO SCH (08:49)
[2021-12-12] MEDS: LEVOTHYROXINE 100 MCG TABLET PO SCH (08:49)
[2021-12-12] MEDS: PANTOPRAZOLE 40 MG TAB DR PO SCH (08:49)
[2021-12-12] MEDS: GABAPENTIN 300 MG CAPSULE PO SCH (08:49)
[2021-12-12] MEDS: ASCORBIC ACID 500 MG TAB PO SCH (08:50)
[2021-12-12] MEDS: BUPROPION HCL 150 MG TABLET.SA PO SCH (08:50)
[2021-12-12] MEDS: MONTELUKAST SODIUM 10 MG TAB PO SCH (08:50)
[2021-12-12] MEDS: CEFTRIAXONE 2GM VIAL IVP SCH (08:51)
[2021-12-12 09:00] VITALS: BP 116/72
== END 2021-12-12 09:14 | DRG 808 ==
LOC: EDH 02:13 → EDHIP 04:34 → 2AH 12-06 22:34
PROVIDERS: ADMIT Internal Medicine; ATTEND Internal Medicine
PROC: 30233R1 Transfusion of Nonautologous Platelets into Peripheral Vein, Percutaneous Approach (ICD-10-PCS; 2021-12-06)
PROC: 06H03DZ Insertion of Intraluminal Device into Inferior Vena Cava, Percutaneous Approach (ICD-10-PCS; principal; 2021-12-07)
PROC: 30233N1 Transfusion of Nonautologous Red Blood Cells into Peripheral Vein, Percutaneous Approach (ICD-10-PCS; 2021-12-07)
DX: D61.818 Other pancytopenia (principal); U07.1 COVID-19; J12.82 Pneumonia due to coronavirus disease 2019; E43 Unspecified severe protein-calorie malnutrition; L89.623 Pressure ulcer of left heel, stage 3; I82.403 Acute embolism and thrombosis of unspecified deep veins of lower extremity, bilateral; N39.0 Urinary tract infection, site not specified; R04.0 Epistaxis; D53.9 Nutritional anemia, unspecified; E03.9 Hypothyroidism, unspecified; E11.22 Type 2 diabetes mellitus with diabetic chronic kidney disease; E11.649 Type 2 diabetes mellitus with hypoglycemia without coma; E78.00 Pure hypercholesterolemia, unspecified; E78.5 Hyperlipidemia, unspecified; E88.09 Other disorders of plasma-protein metabolism, not elsewhere classified; F31.9 Bipolar disorder, unspecified; D63.8 Anemia in other chronic diseases classified elsewhere; H54.62 Unqualified visual loss, left eye, normal vision right eye; I12.9 Hypertensive chronic kidney disease with stage 1 through stage 4 chronic kidney disease, or unspecified chronic kidney disease; L40.50 Arthropathic psoriasis, unspecified; N18.9 Chronic kidney disease, unspecified; R54 Age-related physical debility; R79.83 Abnormal findings of blood amino-acid level; B96.1 Klebsiella pneumoniae [K. pneumoniae] as the cause of diseases classified elsewhere; E53.8 Deficiency of other specified B group vitamins; E87.6 Hypokalemia; I25.10 Atherosclerotic heart disease of native coronary artery without angina pectoris; L89.152 Pressure ulcer of sacral region, stage 2; L89.212 Pressure ulcer of right hip, stage 2; L89.322 Pressure ulcer of left buttock, stage 2; R62.7 Adult failure to thrive; Z74.01 Bed confinement status; Z79.01 Long term (current) use of anticoagulants; Z98.84 Bariatric surgery status; Z79.4 Long term (current) use of insulin; Z88.6 Allergy status to analgesic agent; Z88.8 Allergy status to other drugs, medicaments and biological substances; Z86.718 Personal history of other venous thrombosis and embolism; Z86.73 Personal history of transient ischemic attack (TIA), and cerebral infarction without residual deficits; Z83.3 Family history of diabetes mellitus
CPT/HCPCS: 36415; 36430; 37191; 70450; 71045; 74177; 76705; 80048; 80053; 81001; 81241; 82270; 82607; 82728; 82746; 82948; 83036; 83540; 83550; 83690; 83735; 84132; 84443; 85014; 85018; 85025; 85027; 85045; 85230; 85240; 85244; 85384; 85610; 85730; 86850; 86900; 86901; 86923; 87077; 87088; 87186; 87635; 93970; 97039; C1769; C9113; G0378; J0696; J1644; J1652; J1756; J2250; J3010; J3420; J3475; J3480; J3490; J7030; J7042; J7070; P9016; P9034; Q9967